=== PATIENT | female | born 1985 | race Caucasian/White ===

== ENCOUNTER 2018-05-18 17:36 | Inpatient (IN) | payer MEDICAID ==
[2018-05-18 18:34] LABS: RUPTURE FETAL MEMBRANES POSITIVE (NEGATIVE)
[2018-05-18] MEDS ORDERED: BUTORPHANOL 2 MG INJ IV (19:00)
[2018-05-18] MEDS ORDERED: OXYTOCIN 30 UNITS/LR 500 ML IV (19:00)
[2018-05-18] MEDS ORDERED: MISOPROSTOL 200 MCG TAB PR (19:00)
[2018-05-18] MEDS ORDERED: CARBOPROST 250 MCG INJ IM (19:00)
[2018-05-18] MEDS ORDERED: BUTORPHANOL 1 MG INJ IV (19:00)
[2018-05-18] MEDS ORDERED: METHYLERGONOVINE 0.2 MG INJ IM (19:00)
[2018-05-18] MEDS ORDERED: LIDOCAINE 1% (MPF) 30 ML INJ INJ (19:00)
[2018-05-18] MEDS: LACTATED RINGER'S 1,000 ML IV (19:54)
[2018-05-18 20:26] LABS: ADD MAN DIFF? NO
[2018-05-18 20:30] LABS: BASOPHILS % 0.3 % (0.0-2.0); EOSINOPHILS % 0.4 % (0.0-7.0); HEMATOCRIT 39.1 % (37.0-47.0); LYMPHOCYTES # 1.2 10^3/ul (0.8-2.9); LYMPHOCYTES % 16.6 % (15.0-51.0); MEAN CORPUSCULAR HEMOGLOBIN 30.6 pg (29.0-33.0); MEAN CORPUSCULAR HGB CONC 33.2 g/dl (32.0-37.0); MEAN PLATELET VOLUME 11.9 fl (7.4-10.4); MONOCYTE # 0.5 10^3/ul (0.3-0.9); NEUTROPHIL # 5.3 10^3/ul (1.6-7.5); NEUTROPHILS % 75.1 % (39.0-77.0); PLATELET COUNT 234 10^3/UL (140-415); RED BLOOD COUNT 4.25 10^6/ul (4.20-5.40)
[2018-05-18 20:30] LABS: WHITE BLOOD COUNT 7.1 10^3/ul (4.8-10.8)
[2018-05-18 20:34] LABS: ADD UMIC YES; UR ASCORBIC ACID NEGATIVE (NEGATIVE); UR BILIRUBIN (Dip) NEGATIVE (NEGATIVE); UR BLOOD (Dip) 1+ mg/dL (NEGATIVE); UR CLARITY CLEAR (CLEAR); UR COLOR STRAW (YELLOW); UR GLUCOSE (Dip) NEGATIVE (NEGATIVE); UR KETONES (Dip) TRACE mg/dL (NEGATIVE); UR LEUKOCYTE ESTERASE (Dip) NEGATIVE Leu/ul (NEGATIVE); UR NITRITE (Dip) NEGATIVE (NEGATIVE); UR RBC 3 /HPF (0-5); UR SPECIFIC GRAVITY (Dip) 1.006 (1.003-1.030); UR SQUAMOUS EPITHELIAL CELL FEW /HPF (FEW); UR TOTAL PROTEIN (Dip) NEGATIVE (NEGATIVE); UR UROBILINOGEN (Dip) NEGATIVE (NEGATIVE); UR WBC 1 /HPF (0-5)
[2018-05-18 20:46] LABS: AMPHETAMINE/METHAMPHETAMINE Negative (NEGATIVE); BARBITURATES Negative (NEGATIVE); BENZODIAZEPINES Negative (NEGATIVE); CANNABINOIDS Negative (NEGATIVE); COCAINE Negative (NEGATIVE); OPIATES Negative (NEGATIVE)
[2018-05-18 20:49] LABS: INR 0.89; PROTIME 12.2 Sec (11.9-14.9)
[2018-05-18 20:50] LABS: PARTIAL THROMBOPLASTIN TIME 24.9 Sec (23.0-35.0)
[2018-05-18] MEDS: AMPICILLIN 2 GM/NS (PMX) 100 ML IV (20:54)
[2018-05-18] MEDS: OXYTOCIN 30 UNITS/LR 500 ML IV ×2 (20:56→22:14)
[2018-05-18 21:20] LABS: HEPATITIS B SURFACE ANTIGEN NEGATIVE (NEGATIVE)
[2018-05-18 21:31] LABS: HIV 1&2 ANTIBODY NEGATIVE (NEGATIVE)
[2018-05-18 22:10] LABS: RAPID PLASMA REAGIN NONREACTIVE (NR)
[2018-05-18] MEDS: MINERAL OIL LIGHT 10 ML VIAL TOP (22:10)
[2018-05-18] MEDS ORDERED: AMPICILLIN 1 GM/NS (PMX) 50 ML IV (23:00)
[2018-05-19] MEDS: OXYTOCIN 30 UNITS/LR 500 ML IV ×2 (00:05→05:45)
[2018-05-19] MEDS ORDERED: AMPICILLIN 1 GM/NS (PMX) 50 ML IV (01:00)
[2018-05-19] MEDS: LACTATED RINGER'S 1,000 ML IV* ×3 (01:07→22:54)
[2018-05-19] MEDS ORDERED: DIBUCAINE 1% 30 GM OINT TOP (01:30)
[2018-05-19] MEDS ORDERED: LANOLIN HPA 1 PKT TOP (01:30)
[2018-05-19] MEDS ORDERED: HYDROCODONE/APAP (5/325) TAB PO ×2 (01:30)
[2018-05-19] MEDS ORDERED: CARBOPROST 250 MCG INJ IM (01:30)
[2018-05-19] MEDS ORDERED: MISOPROSTOL 200 MCG TAB PR (01:30)
[2018-05-19] MEDS ORDERED: METHYLERGONOVINE 0.2 MG INJ IM (01:30)
[2018-05-19] MEDS ORDERED: ZOLPIDEM 5 MG TAB PO (01:30)
[2018-05-19] MEDS: KETOROLAC 30 MG INJ IV (01:39)
[2018-05-19] MEDS: WITCH HAZEL/GLYCERIN PAD PR (03:24)
[2018-05-19] MEDS: BENZOCAINE 20% 56 ML SPRAY TOP (03:24)
[2018-05-19] MEDS: IBUPROFEN 600 MG TAB PO ×4 (05:45→23:56)
[2018-05-19 08:47] LABS: ADD MAN DIFF? NO
[2018-05-19 08:49] LABS: WHITE BLOOD COUNT 8.9 10^3/ul (4.8-10.8)
[2018-05-19 08:49] LABS: BASOPHILS % 0.3 % (0.0-2.0); EOSINOPHILS % 0.2 % (0.0-7.0); HEMATOCRIT 32.6 % (37.0-47.0); HEMOGLOBIN 10.9 g/dl (12.0-16.0); LYMPHOCYTES # 1.3 10^3/ul (0.8-2.9); LYMPHOCYTES % 14.9 % (15.0-51.0); MEAN CORPUSCULAR HEMOGLOBIN 30.8 pg (29.0-33.0); MEAN CORPUSCULAR HGB CONC 33.4 g/dl (32.0-37.0); MEAN CORPUSCULAR VOLUME 92.1 fl (82.0-101.0); MEAN PLATELET VOLUME 11.9 fl (7.4-10.4); NEUTROPHIL # 6.5 10^3/ul (1.6-7.5); PLATELET COUNT 203 10^3/UL (140-415); RED BLOOD COUNT 3.54 10^6/ul (4.20-5.40); RED CELL DISTRIBUTION WIDTH 13.5 % (11.5-14.5)
[2018-05-19] MEDS: MAGNESIUM HYDROXIDE 30ML CUP PO ×2 (08:53→20:52)
[2018-05-19] MEDS: SENNA/DOCUSATE NA (8.6MG/50MG) TAB PO ×2 (08:53→20:52)
[2018-05-20] MEDS: LACTATED RINGER'S 1,000 ML IV* ×2 (01:07→09:07)
[2018-05-20] MEDS: IBUPROFEN 600 MG TAB PO ×2 (05:27→12:35)
[2018-05-20] MEDS: DIPHTH/TET/ACEL PERTUSS (ADULT) 0.5 ML VIAL IM* (09:00)
[2018-05-20] MEDS: SENNA/DOCUSATE NA (8.6MG/50MG) TAB PO (09:00)
[2018-05-20] MEDS: MAGNESIUM HYDROXIDE 30ML CUP PO (09:00)
[2018-05-20] MEDS: VARICELLA VACCINE LIVE/PF 1,350 UNIT/0.5 ML ML SC* (09:29)
[2018-05-20] MEDS: MEASLES,MUMPS,RUBELLA VACCINE INJ SC* (09:29)
[2018-05-21 11:42] LABS: RUBELLA ANTIBODY - IGG 2.33 index
[2018-05-22 12:42] LABS: RUBELLA ANTIBODY - IGM <20.00 AU/mL
== END 2018-05-20 15:40 | disposition home or self-care (01) | DRG 805 ==
LOC: OBT 17:36 → PP1 05-19 01:03 → L-D 17:36 → OBT 17:45 → L-D 17:45
PROVIDERS: Obstetrics & Gynecology
PROC: 10D07Z6 Extraction of Products of Conception, Vacuum, Via Natural or Artificial Opening (ICD-10-PCS; principal; 2018-05-18)
PROC: 0HQ9XZZ Repair Perineum Skin, External Approach (ICD-10-PCS; 2018-05-18)
PROC: 4A1HXCZ Monitoring of Products of Conception, Cardiac Rate, External Approach (ICD-10-PCS; 2018-05-18)
DX: O42.013 Preterm premature rupture of membranes, onset of labor within 24 hours of rupture, third trimester (principal); O60.14X0 Preterm labor third trimester with preterm delivery third trimester, not applicable or unspecified; Z37.0 Single live birth; Z3A.36 36 weeks gestation of pregnancy; O76 Abnormality in fetal heart rate and rhythm complicating labor and delivery; O70.0 First degree perineal laceration during delivery; O69.81X0 Labor and delivery complicated by cord around neck, without compression, not applicable or unspecified
CPT/HCPCS: 76815; 76818; 80307; 81001; 84112; 85025; 85610; 85730; 86592; 86703; 86762; 86850; 86900; 86901; 87086; 87340; 90716; 99464